=== PATIENT | male | born 1960 | race Caucasian/White ===

== ENCOUNTER 2016-03-17 01:57 | Emergency (ER) | payer SELFPAY ==
[~2016-03-17] VITALS: Ht 177.8 cm; Wt 108.0 kg
[~2016-03-17 01:57] MED LIST: INDO50CA PO; LISI-592 OR; METO25 PO; TYLE3 PO
[2016-03-17 01:58] VITALS: BP 203/100; PULSE 77; RESP 16; TEMP 97.5; O2SAT 98
--- NOTE | 2016-03-17 02:29 | PD ---
HPI Chief Complaint: Musculoskeletal Complaint Time Seen by Provider: 02:18 Travel History International Travel<30 days: No Contact w/Intl Traveler<30days: No Traveled to known affect area: No History of Present Illness HPI 55-year-old male with 20 year history of gouty arthritis attacks presents for evaluation of right wrist pain. Symptoms started 3 days ago. The pain is a throbbing pain in the right wrist which is constant and worse with movement. The pain is similar to previous gouty arthritis attacks. He denies any injuries , fevers, chills. He typically takes indomethacin for gouty arthritis but he has run out which prompted evaluation. His primary care physician is Dr. Kraft. No other complaints at this time. PFSH Past Medical History Hx Anticoagulant Therapy: Yes (ASA) Arthritis: No Asthma: No Autoimmune Disease: No Blood Disorders: No Anxiety: No Depression: Yes Heart Rhythm Problems: No Cancer: No Cardiovascular Problems: Yes (HTN) High Cholesterol: No Chest Pain: No Congestive Heart Failure: No COPD: No Cerebrovascular Accident: No Diabetes: No Diminished Hearing: No Endocrine: No Gastrointestinal Disorders: No GERD: No Glaucoma: No Gout: Yes Genitourinary: No Headaches: No Hepatitis: No Hiatal Hernia: No Hypertension: Yes Immune Disorder: No Implanted Vascular Access Dvce: No Kidney Stones: No Musculoskeletal: Yes Neurologic: Yes Psychiatric: No Reproductive: No Respiratory: No Immunizations Current: No Migraines: No Myocardial Infarction: No Pancreatitis: Yes Renal Failure: No Seizures: Yes Sleep Apnea: No Thyroid Disease: No Ulcer: No Past Surgical History Abdominal Surgery: Yes (GB REMOVED 5-6 YEARS AGO) Appendectomy: No Cardiac Surgery: No Cholecystectomy: Yes (2001) Ear Surgery: No Endocrine Surgery: No Eye Surgery: No Genitourinary Surgery: No Gynecologic Surgery: No Neurologic Surgery: No Oral Surgery: Yes (rt rotator cuff mar 02) Pacemaker: No Thoracic Surgery: No Other Surgery: No Social History Alcohol Use: No Tobacco Use: No Substance Use: No Allergies-Medications (Allergen,Severity, Reaction): Coded Allergies: No Known Allergies (Unverified , 03/17/16) Reported Meds & Prescriptions Reported Meds & Active Scripts Active Metoprolol Tartrate 25 mg (Metoprolol Tartrate) 25 Mg Tab 25 Mg PO BID Zestril 30 mg (Lisinopril) 30 Mg Tab 30 Mg OR DAILY Tylenol #3 (Acetaminophen/Codeine Phosphate) Acetaminophen 300/30 Codeine Tab 1 Tab PO QID PRN FOR PAIN Indomethacin 50 Mg Cap 50 Mg PO TID 50 mg tid for 2-3 days Review of Systems General / Constitutional: No: Fever, Chills Musculoskeletal: Positive: Limited ROM, Pain Skin: Positive Other (no open wounds) Physical Exam Narrative GENERAL: Well-developed well-nourished male in no acute distress SKIN: Warm and dry. CARDIOVASCULAR: Regular rate and rhythm. No murmur appreciated. RESPIRATORY: No accessory muscle use. Clear to auscultation. Breath sounds equal bilaterally. MUSCULOSKELETAL: No obvious deformities. Generalized tenderness to palpation right wrist with pain with range of motion activities. No erythema or induration of the skin. No tenderness to palpation of the proximal forearm or the right hand. NEUROLOGICAL: Awake and alert. No obvious cranial nerve deficits. Motor grossly within normal limits. Normal speech. Data Data Last Documented VS Vital Signs Date Time Temp Pulse Resp B/P Pulse Ox O2 Delivery O2 Flow Rate FiO2 03/17/16 01:58 97.5 77 16 203/100 98 Room Air Orders Ketorolac Inj (Toradol Inj) (03/17/16 02:30) Methylprednisolone So Succ Inj (Solumedr (03/17/16 02:30) Acetamin-Codeine 300-30 Mg (Tylenol-Code (03/17/16 02:30) MDM Medical Decision Making Medical Screen Exam Complete: Yes Emergency Medical Condition: Yes Medical Record Reviewed: Yes Differential Diagnosis Gouty arthritis, rheumatoid arthritis, septic arthritis, tendinitis, carpal tunnel syndrome Narrative Course 55-year-old male with a 20 year history of frequent gouty arthritis attacks presents with 3 day history of right wrist pain consistent with his gouty arthritis. Plan is to treat the patient symptomatically with Toradol and Solu- Medrol injections, Tylenol codeine here. He will be discharged with a refill of his indomethacin. Diagnosis Primary Impression: Gouty arthritis Additional Instructions: Medication as needed. Avoid shellfish/alcohol. Follow-up with primary care physician. Return for any emergent medical conditions. Med/Other Pt SpecificInfo: Prescription(s) given Scripts Indomethacin 50 Mg Cap50 Mg PO TID #30 CAP Ref 0 Take with food, milk, or antacids to decrease stomach adverse effects. Prov:Darnell Allen MD 03/17/16 Disposition: 01 DISCHARGE HOME Condition: Stable Audie Thorne Mar 17, 2016 02:28
[2016-03-17] MEDS ORDERED: INDO50CA PO (02:30)
[2016-03-17] MEDS ORDERED: ACETAMINOPHEN/CODEINE 300 MG/30 MG TAB PO ONE (02:30)
[2016-03-17] MEDS ORDERED: methylPREDNISolone SOD SUCC 125 MG/2 ML VIAL IM ONE (02:30)
[2016-03-17] MEDS ORDERED: KETOROLAC TROMETHAMINE 60 MG/2 ML (IM) VIAL IM ONE (02:30)
[2016-03-30] MEDS ORDERED: LISI30TA4 PO ×3 (15:13→15:20)
[2016-07-19] MEDS ORDERED: LISI30TA4 PO (10:18)
== END 2016-03-17 03:02 | disposition home or self-care (01) ==
LOC: NEPB 01:57
DX: M10.9 Gout, unspecified (principal); I10 Essential (primary) hypertension
CPT/HCPCS: 96372; 99283; J1885; J2930

== ENCOUNTER 2017-03-12 03:34 | Emergency (ER) | payer SELFPAY ==
[~2017-03-12] VITALS: Ht 177.8 cm; Wt 98.0 kg
[~2017-03-12 03:34] MED LIST changes: -LISI-592 OR; +LISI30TA4 PO; -METO25 PO; -TYLE3 PO
[2017-03-12 03:37] VITALS: BP 182/95; PULSE 84; RESP 16; TEMP 97.7; O2SAT 97
[2017-03-12] MEDS ORDERED: ASPI81TA23 PO (03:50)
[2017-03-12] MEDS ORDERED: METO25TA3 PO (03:50)
[2017-03-12] MEDS ORDERED: INDO50CA PO (04:14)
[2017-03-12] MEDS ORDERED: ACETAMINOPHEN/HYDROcodone 325 MG/5 MG TAB PO ONE (04:15)
[2017-03-12] MEDS ORDERED: KETOROLAC TROMETHAMINE 60 MG/2 ML (IM) VIAL IM ONE (04:15)
[2017-03-12] MEDS ORDERED: DEXAMETHASONE SOD PHOS 20 MG/5 ML VIAL IM ONE (04:15)
--- NOTE | 2017-03-12 04:20 | PD ---
HPI Chief Complaint: Pain: Acute or Chronic Time Seen by Provider: 04:09 Travel History International Travel<30 days: No Contact w/Intl Traveler<30days: No Traveled to known affect area: No History of Present Illness HPI 56-year-old white male presents to emergency Department with complaints of left wrist pain she associates with his gout. He states that he's had gout in the past and his wrist. This is a similar type pain. He states the pain radiates up into his forearm. Patient is moderate. Worse with movement. He states that he typically takes indomethacin and gets a steroid shot. He denies any numbness or tingling. Pain is moderate. No alleviating factors. PFSH Past Medical History Hx Anticoagulant Therapy: Yes (ASA) Arthritis: No Asthma: No Autoimmune Disease: No Blood Disorders: No Anxiety: No Depression: Yes Heart Rhythm Problems: No Cancer: No Cardiovascular Problems: Yes (HTN) High Cholesterol: No Chest Pain: No Congestive Heart Failure: No COPD: No Cerebrovascular Accident: No Diabetes: No Diminished Hearing: No Endocrine: No Gastrointestinal Disorders: No GERD: No Glaucoma: No Gout: Yes Genitourinary: No Headaches: No Hepatitis: No Hiatal Hernia: No Hypertension: Yes Immune Disorder: No Implanted Vascular Access Dvce: No Kidney Stones: No Medical other: No Musculoskeletal: Yes Neurologic: Yes Psychiatric: No Reproductive: No Respiratory: No Immunizations Current: Yes Migraines: No Myocardial Infarction: No Pancreatitis: Yes Renal Failure: No Seizures: Yes Sleep Apnea: No Thyroid Disease: No Ulcer: No Tetanus Vaccination: > 5 Years Influenza Vaccination: No Past Surgical History Abdominal Surgery: Yes (GB REMOVED 5-6 YEARS AGO) Appendectomy: No Cardiac Surgery: No Cholecystectomy: Yes (2001) Ear Surgery: No Endocrine Surgery: No Eye Surgery: No Genitourinary Surgery: No Gynecologic Surgery: No Neurologic Surgery: No Oral Surgery: Yes (rt rotator cuff mar 02) Pacemaker: No Thoracic Surgery: No Other Surgery: No Social History Alcohol Use: No Tobacco Use: No Substance Use: No Allergies-Medications (Allergen,Severity, Reaction): Coded Allergies: No Known Allergies (Unverified Adverse Reaction, Unknown, 03/12/17) Reported Meds & Prescriptions Reported Meds & Active Scripts Active Indomethacin 50 Mg Cap 50 Mg PO TID Take with food, milk, or antacids to decrease stomach adverse effects. Lisinopril 30 Mg Tab 30 Mg PO DAILY Reported Metoprolol Tartrate 25 Mg Tab 25 Mg PO DAILY Aspirin EC (Aspirin) 81 Mg Tabdr 81 Mg PO DAILY Review of Systems General / Constitutional: No: Fever Eyes: No: Visual changes HENT: No: Headaches Cardiovascular: No: Chest Pain or Discomfort Respiratory: No: Shortness of Breath Gastrointestinal: No: Abdominal Pain Genitourinary: No: Dysuria Musculoskeletal: Positive: Arthralgias, Limited ROM, Edema, Pain Skin: No Rash Neurologic: No: Weakness Psychiatric: No: Depression Endocrine: No: Polydipsia Hematologic/Lymphatic: No: Easy Bruising Physical Exam Narrative GENERAL: This is a well-nourished, well-developed patient, in no apparent distress. SKIN: No rashes, ecchymoses or lesions. Warm and dry. HEAD: Atraumatic. Normocephalic. EYES: PERRL, EOMI, no discharge or injection. No scleral icterus. EARS: Clear NOSE: Nasal turbinates appear normal. THROAT: Mucosa pink and moist. Airway patent. NECK: Trachea midline. supple, moves head freely. LUNGS: Clear to auscultation. CV: Regular in rhythm. ABDOMEN: Soft nontender. EXT: No clubbing cyanosis or edema. Examination left upper extremity reveals pain in the wrist globally. He has decreased range of motion due to pain. No erythema or warmth. Data Data Last Documented VS Vital Signs Date Time Temp Pulse Resp B/P (MAP) Pulse Ox O2 Delivery O2 Flow Rate FiO2 03/12/17 03:37 97.7 84 16 182/95 (124) 97 Room Air Orders Orders Dexamethasone Inj (Decadron Inj) (03/12/17 04:15) Ketorolac Inj (Toradol Inj) (03/12/17 04:15) Acetamin-Hydrocod 325-5 Mg (Eva 5-325 (03/12/17 04:15) Ed Discharge Order (03/12/17 04:14) [facility] Medical Decision Making Medical Screen Exam Complete: Yes Emergency Medical Condition: Yes Medical Record Reviewed: Yes Differential Diagnosis Differential diagnoses: Sprain, strain, gout Narrative Course Patient is given Decadron 10 mg IM, Toradol 60 mg IM and 1 NORCO 5 mg by mouth. This is right wrist gout. Diagnosis Primary Impression: Gouty arthritis Patient Instructions: Narcotic given in the ED, General Instructions Additional Instructions: Rest. Elevation. Avoid alcohol, cheeses and red meat. Indomethacin Med/Other Pt SpecificInfo: Prescription(s) given Scripts Indomethacin (Indomethacin) 50 Mg Cap 50 MG PO TID, #30 CAP 0 Refills Take with food, milk, or antacids to decrease stomach adverse effects. Prov: Darnell Allen MD 03/12/17 Disposition: 01 DISCHARGE HOME Condition: Stable Gilbert Klein Mar 12, 2017 04:20
== END 2017-03-12 04:35 | disposition home or self-care (01) ==
LOC: NEPD 03:34
DX: M10.9 Gout, unspecified (principal); F32.9 Major depressive disorder, single episode, unspecified; I10 Essential (primary) hypertension; R56.9 Unspecified convulsions; Z79.82 Long term (current) use of aspirin; Z79.899 Other long term (current) drug therapy; Z87.19 Personal history of other diseases of the digestive system
CPT/HCPCS: 96372; 99284; J1100; J1885

== ENCOUNTER 2017-07-03 03:22 | Emergency (ER) | payer SELFPAY ==
[~2017-07-03] VITALS: Ht 177.8 cm; Wt 105.0 kg
[~2017-07-03 03:22] MED LIST changes: +ASPI81TA23 PO; +METO25TA3 PO
[2017-07-03 03:25] VITALS: BP 193/91; PULSE 89; RESP 20; TEMP 97.7; O2SAT 99
[2017-07-03] MEDS ORDERED: CIPR-9 PO (03:43)
[2017-07-03] MEDS ORDERED: CIPROFLOXACIN 500 MG TAB PO ONE (03:45)
--- NOTE | 2017-07-03 03:47 | PD ---
HPI Chief Complaint: Injury Time Seen by Provider: 03:41 Travel History International Travel<30 days: No Contact w/Intl Traveler<30days: No Traveled to known affect area: No History of Present Illness HPI 57-year-old white male presents emergency department with complaints of a infection of his left great toenail. He states that he has had irregular toenails for some time now. He has stubbed his left great toe in the past 1-2 weeks. It has now become secondarily infected. He has had increasing redness, swelling, pain and drainage. He denies any fever chills. No lymphangitic streaking. Pain is mild. PFSH Past Medical History Narrative Medical Denies diabetes Hx Anticoagulant Therapy: Yes (ASA) Arthritis: No Asthma: No Autoimmune Disease: No Blood Disorders: No Anxiety: No Depression: Yes Heart Rhythm Problems: No Cancer: No Cardiovascular Problems: Yes (HTN) High Cholesterol: No Chest Pain: No Congestive Heart Failure: No COPD: No Cerebrovascular Accident: No Diabetes: No Diminished Hearing: No Endocrine: No Gastrointestinal Disorders: No GERD: No Glaucoma: No Gout: Yes Genitourinary: No Headaches: No Hepatitis: No Hiatal Hernia: No Hypertension: Yes Immune Disorder: No Implanted Vascular Access Dvce: No Kidney Stones: No Musculoskeletal: Yes Neurologic: Yes Psychiatric: No Reproductive: No Respiratory: No Immunizations Current: Yes Migraines: No Myocardial Infarction: No Pancreatitis: Yes Renal Failure: No Seizures: Yes Sleep Apnea: No Thyroid Disease: No Ulcer: No Tetanus Vaccination: Unknown Influenza Vaccination: No Past Surgical History Abdominal Surgery: Yes (GB REMOVED 5-6 YEARS AGO) Appendectomy: No Cardiac Surgery: No Cholecystectomy: Yes (2001) Ear Surgery: No Endocrine Surgery: No Eye Surgery: No Genitourinary Surgery: No Gynecologic Surgery: No Neurologic Surgery: No Oral Surgery: Yes (rt rotator cuff mar 02) Pacemaker: No Thoracic Surgery: No Other Surgery: No Social History Alcohol Use: No Tobacco Use: No Substance Use: No Allergies-Medications (Allergen,Severity, Reaction): Coded Allergies: No Known Allergies (Unverified Adverse Reaction, Unknown, 07/03/17) Reported Meds & Prescriptions Reported Meds & Active Scripts Active Cipro (Ciprofloxacin HCl) 500 Mg Tab 500 Mg PO BID 10 Days Indomethacin 50 Mg Cap 50 Mg PO TID Take with food, milk, or antacids to decrease stomach adverse effects. Lisinopril 30 Mg Tab 30 Mg PO DAILY Reported Metoprolol Tartrate 25 Mg Tab 25 Mg PO DAILY Aspirin EC (Aspirin) 81 Mg Tabdr 81 Mg PO DAILY Review of Systems General / Constitutional: No: Fever Eyes: No: Visual changes HENT: No: Headaches Cardiovascular: No: Chest Pain or Discomfort Respiratory: No: Shortness of Breath Gastrointestinal: No: Abdominal Pain Genitourinary: No: Dysuria Musculoskeletal: Positive: Edema, Pain, No: Limited ROM Skin: Positive Rash Neurologic: No: Weakness Psychiatric: No: Depression Endocrine: No: Polydipsia Hematologic/Lymphatic: No: Easy Bruising Physical Exam Narrative GENERAL: This is a well-nourished, well-developed patient, in no apparent distress. SKIN: No rashes, ecchymoses or lesions. Warm and dry. HEAD: Atraumatic. Normocephalic. EYES: PERRL, EOMI, no discharge or injection. No scleral icterus. EARS: Clear NOSE: Nasal turbinates appear normal. THROAT: Mucosa pink and moist. Airway patent. NECK: Trachea midline. supple, moves head freely. LUNGS: Clear to auscultation. CV: Regular in rhythm. ABDOMEN: Soft nontender. EXT: No clubbing cyanosis or edema. Patient has an irregular toenail on the left great toe. It is impacting on the medial aspect the nailbed causing chronic inflammation. It has now become secondarily infected. He has increasing redness, swelling and a purulent drainage. The patient's toenail is removed with gentle traction because it is only 25% connected to the nail bed. Data Data Last Documented VS Vital Signs Date Time Temp Pulse Resp B/P (MAP) Pulse Ox O2 Delivery O2 Flow Rate FiO2 07/03/17 03:25 97.7 89 20 193/91 (125) 99 Orders Orders Ciprofloxacin (Cipro) (07/03/17 03:45) Ed Discharge Order (07/03/17 03:42) MDM Medical Decision Making Medical Screen Exam Complete: Yes Emergency Medical Condition: Yes Medical Record Reviewed: Yes Differential Diagnosis MDM: High Differential diagnoses: Abscess, folliculitis, cellulitis, lymphangitis, abrasion, contact dermatitis, ingrown toenail, infected ingrown toenail Narrative Course This is an infected ingrown toenail. Patient is given Cipro 500 mg p.o. Diagnosis Primary Impression: Infected ingrown toenail left great toe Patient Instructions: General Instructions Additional Instructions: Rest. Elevation above the heart. Soak in Epsom salts 2-3 times daily. Lamisil spray for foot fungus twice daily. Cipro. Follow-up with a medical doctor or cardiac nurse in 1 week. Return to the ER if any problems. Med/Other Pt SpecificInfo: Prescription(s) given Scripts Ciprofloxacin (Cipro) 500 Mg Tab 500 MG PO BID for Infection for 10 Days, #20 TAB 0 Refills Prov: Serenity Mccarty MD 07/03/17 Disposition: 01 DISCHARGE HOME Condition: Stable Gilbert Klein July 03, 2017 03:47
== END 2017-07-03 04:03 | disposition home or self-care (01) ==
LOC: NEPD 03:22
DX: L60.0 Ingrowing nail (principal)
CPT/HCPCS: 99283